=== PATIENT | female | born 1990 | race Caucasian/White ===

== ENCOUNTER 2017-03-07 21:35 | Emergency (ER) | payer SELFPAY ==
[~2017-03-07] VITALS: Ht 170.2 cm; Wt 81.0 kg
[~2017-03-07 21:35] MED LIST: CIPR500T4 PO; PHEN-537 PO
[2017-03-07 21:43] VITALS: Ht 170.2 cm; Wt 81.0 kg
[2017-03-07] MEDS ORDERED: IBUP-1542 PO (23:14)
[2017-03-07] MEDS ORDERED: CYCL-319 PO (23:14)
--- NOTE | 2017-03-07 23:22 | ERD ---
ER Documentation Chief Complaint Date/Time DATE: 03/07/17 TIME: 23:18 Chief Complaint Back pain after lifting something heavy HPI This is a 27-year-old female presenting to emergency department for back pain after lifting heavy object at work 2 days ago. Patient states she developed mid right-sided back pain after lifting heavy box at work 2 nights ago. Patient states pain has gotten worse. No chest pain or shortness of breath. No difficulty breathing. No heart palpitations or chest tightness or pressure. Patient rating pain 7/10. Denies radiating pain. Patient states she took ibuprofen at home without relief of symptoms. No dysuria, hematuria, urinary frequency or urinary urgency. ROS All systems reviewed and are negative except as per history of present illness. Medications Home Meds Active Scripts Cyclobenzaprine Hcl* (Cyclobenzaprine Hcl*) 10 Mg Tablet, 10 MG PO TID, #15 TAB Prov:ANTONIO LANGE NP 03/07/17 Ibuprofen* (Motrin*) 600 Mg Tab, 600 MG PO Q6, #20 TAB Prov:ANTONIO LANGE NP 03/07/17 Phenazopyridine Hcl* (Pyridium*) 100 Mg Tab, 100 MG PO TID Y for PAIN, #8 TAB Prov:AMAURI GUTHRIE I. LNA 08/24/15 Ciprofloxacin Hcl* (Ciprofloxacin Hcl*) 500 Mg Tablet, 250 MG PO BID for 10 Days , TAB Prov:AMAURI GUTHRIE I. LNA 08/24/15 Allergies Allergies: Coded Allergies: No Known Allergies (Verified Allergy, Unknown, 08/24/15) PMhx/Soc Medical and Surgical Hx: pt denies Medical Hx, pt denies Surgical Hx Hx Alcohol Use: Yes (rarely) Hx Substance Use: No Hx Tobacco Use: No Smoking Status: Never smoker Physical Exam Vitals Vital Signs Date Time Temp Pulse Resp B/P Pulse Ox O2 Delivery O2 Flow Rate FiO2 03/07/17 21:43 98.4 94 18 125/72 98 Physical Exam Const: No acute distress, alert Head: Atraumatic Eyes: Normal Conjunctiva ENT: Normal External Ears, Nose and Mouth. Neck: Full range of motion..~ No meningismus. Resp: Clear to auscultation bilaterally. No wheezing, rhonchi or crackles. No stridor or labored breathing. Patient is talking in complete sentences. Cardio: Regular rate and rhythm, no murmurs Abd: Soft, non tender, non distended. Normal bowel sounds Skin: No petechiae or rashes Back: No midline or flank tenderness. No CVA tenderness. Negative straight leg raise bilaterally Ext: No cyanosis, or edema Neur: Awake and alert Psych: Normal Mood and Affect Procedures/MDM MDM: 27-year-old female presents emergency department for right-sided mid back pain after lifting heavy object at work 2 days ago. Patient states pain has gotten worse since last night. Patient states pain is worse when lying down. Patient took ibuprofen at home without relief of symptoms. Patient requesting something stronger for pain and a note for work. No indication for imaging at this time due to no midline tenderness. No urinary complaints. Vital signs are stable. No signs or symptoms of respiratory distress. Low suspicion for cauda equina syndrome, acute fracture, acute dislocation, epidural abscess, malignancy and AAA rupture. Differential Diagnosis includes but is not limited to back strain, vertebral fracture, herniated disc, spinal stenosis and nephrolithiasis. Patient is appropriate for outpatient management will be given prescription for ibuprofen 600 mg and Flexeril 10 mg. Instructed patient to follow-up with primary care provider in the next 2-3 days for reassessment. Resources provided. Return to ED for any high fever, chest pain, difficulty breathing, shortness breath, wheezing, vomiting, diarrhea, abdominal pain or any new or worsening symptoms. Patient verbalizes understanding. All questions answered at discharge. Departure Diagnosis: Primary Impression: Back pain Back pain location: thoracic back pain Chronicity: acute Back pain laterality: right Qualified Code: M54.6 - Acute right-sided thoracic back pain Condition: Stable Patient Instructions: Back Sprain/Strain Referrals: [facility] YOU HAVE RECEIVED A MEDICAL SCREENING EXAM AND THE RESULTS INDICATE THAT YOU DO NOT HAVE A CONDITION THAT REQUIRES URGENT TREATMENT IN THE EMERGENCY DEPARTMENT. FURTHER EVALUATION AND TREATMENT OF YOUR CONDITION CAN WAIT UNTIL YOU ARE SEEN IN YOUR DOCTORS OFFICE WITHIN THE NEXT 1-2 DAYS. IT IS YOUR RESPONSIBILITY TO MAKE AN APPOINTMENT FOR FOLOW-UP CARE. IF YOU HAVE A PRIMARY DOCTOR --you should call your primary doctor and schedule an appointment IF YOU DO NOT HAVE A PRIMARY DOCTOR YOU CAN CALL OUR PHYSICIAN REFERRAL HOTLINE AT IF YOU CAN NOT AFFORD TO SEE A PHYSICIAN YOU CAN CHOSE FROM THE FOLLOWING [facility] [address] [place] [facility] [address] [facility] [address] [facility] [address] [facility] [address] [facility]. [facility] [address] [facility]. [facility] YOU HAVE RECEIVED A MEDICAL SCREENING EXAM AND THE RESULTS INDICATE THAT YOU DO NOT HAVE A CONDITION THAT REQUIRES URGENT TREATMENT IN THE EMERGENCY DEPARTMENT. FURTHER EVALUATION AND TREATMENT OF YOUR CONDITION CAN WAIT UNTIL YOU ARE SEEN IN YOUR DOCTORS OFFICE WITHIN THE NEXT 1-2 DAYS. IT IS YOUR RESPONSIBILITY TO MAKE AN APPOINTMENT FOR FOLOW-UP CARE. IF YOU HAVE A PRIMARY DOCTOR --you should call your primary doctor and schedule and appointment IF YOU DO NOT HAVE A PRIMARY DOCTOR YOU CAN CALL OUR PHYSICIAN REFERRAL HOTLINE AT . IF YOU CAN NOT AFFORD TO SEE A PHYSICIAN YOU CAN CHOSE FROM THE FOLLOWING [facility] INSTITUTIONS: [facility] [address] [place] [address] [facility] [address] [place] [address] [facility] [address] [place] [address] Additional Instructions: Call your primary care doctor TOMORROW for an appointment during the next 2-3 days.See the doctor sooner or return here if your condition worsens before your appointment time. Return to ED for any high fever, chest pain, difficulty breathing, shortness breath, wheezing, vomiting, diarrhea, abdominal pain or any new or worsening symptoms. ANTONIO LANEG NP Mar 07, 2017 23:21
== END 2017-03-07 23:35 | disposition home or self-care (01) ==
LOC: FTE 21:35
DX: M54.6 Pain in thoracic spine (principal)
CPT/HCPCS: 99283

== ENCOUNTER 2017-09-04 18:27 | Observation (INO) | payer OTHER ==
[~2017-09-04] VITALS: Ht 167.6 cm; Wt 79.4 kg
[~2017-09-04 18:27] MED LIST changes: +CYCL-319 PO; +IBUP-1542 PO
[2017-09-04] MEDS ORDERED: ONDANSETRON 4 MG INJ IV STA (19:33)
[2017-09-04] MEDS ORDERED: morphine 4 MG/ML VIAL IV STA (19:33)
[2017-09-04 20:50] LABS: ADD UMIC NO; UR ASCORBIC ACID NEGATIVE (NEGATIVE); UR BILIRUBIN (Dip) NEGATIVE (NEGATIVE); UR BLOOD (Dip) NEGATIVE (NEGATIVE); UR CLARITY CLEAR (CLEAR); UR COLOR YELLOW (YELLOW); UR GLUCOSE (Dip) NEGATIVE (NEGATIVE); UR KETONES (Dip) NEGATIVE (NEGATIVE); UR LEUKOCYTE ESTERASE (Dip) NEGATIVE Leu/ul (NEGATIVE); UR NITRITE (Dip) NEGATIVE (NEGATIVE); UR SPECIFIC GRAVITY (Dip) 1.015 (1.003-1.030); UR TOTAL PROTEIN (Dip) NEGATIVE (NEGATIVE); UR UROBILINOGEN (Dip) NEGATIVE (NEGATIVE)
[2017-09-04 20:56] LABS: BASOPHIL # 0.1 10^3/ul (0.0-0.1); BASOPHILS % 0.5 % (0.0-2.0); EOSINOPHILS # 0.1 10^3/ul (0.0-0.5); EOSINOPHILS % 0.5 % (0.0-7.0); HEMATOCRIT 36.5 % (37.0-47.0); HEMOGLOBIN 12.7 g/dl (12.0-16.0); LYMPHOCYTES # 2.2 10^3/ul (0.8-2.9); LYMPHOCYTES % 17.3 % (15.0-51.0); MEAN CORPUSCULAR HEMOGLOBIN 32.9 pg (29.0-33.0); MEAN CORPUSCULAR HGB CONC 34.8 g/dl (32.0-37.0); MEAN CORPUSCULAR VOLUME 94.6 fl (82.0-101.0); MEAN PLATELET VOLUME 10.6 fl (7.4-10.4); MONOCYTE # 0.7 10^3/ul (0.3-0.9); MONOCYTES % 5.2 % (0.0-11.0); NEUTROPHIL # 9.7 10^3/ul (1.6-7.5); NEUTROPHILS % 76.1 % (39.0-77.0); PLATELET COUNT 330 10^3/UL (140-415); RED BLOOD COUNT 3.86 10^6/ul (4.20-5.40); WHITE BLOOD COUNT 12.7 10^3/ul (4.8-10.8)
[2017-09-04 21:14] LABS: ALBUMIN/GLOBULIN RATIO 1.33; BILIRUBIN,INDIRECT 0.2 mg/dl (0-1.1); BILIRUBIN,TOTAL 0.2 mg/dl (0.2-1.3); CALCIUM 9.2 mg/dl (8.4-10.2); CREATININE 0.65 mg/dl (0.44-1.00); POTASSIUM 3.7 mmol/L (3.5-5.1)
--- NOTE | 2017-09-04 21:24 | RADRPT ---
PROCEDURE: CT abdomen and pelvis without contrast. CLINICAL INDICATION: Abdominal Pain TECHNIQUE: CT scan of the abdomen and pelvis without contrast was performed. The patient was scan [place] without intravenous contrast. 3-D coronal reformatted images were obtained from the axial [facility] e images. The calculated radiation dose measures 665 mGy centimeters. The CTDI measures 12 mGy One or more of the following dose reduction techniques were used: Automated exposure control. Adjustment of the mA and/or kV according to patient size. Use of iterative reconstruction technique. DICOM images are available COMPARISON: None available FINDINGS: CT abdomen: There is mild atelectasis in the right middle lobe.. The liver is normal in size and density, without intrahepatic biliary dilatation. The spleen and p ancreas are unremarkable noncontrast appearance. The gallbladder appears within normal limits. The adrenal glands are symmetric and normal. The kidneys appear normal in size and contour. No renal calculus or hydronephrosis is visualized. There is no ascites or retroperitoneal lymphadenopathy. Visualized bowel loops appear within normal limits. The appendix is thickened, up to [address], with adjacent fat stranding, consistent with appendicitis. There may be mild thickening of the base of the cecum.. CT pelvis: The urinary bladder appears normal. The pelvic organs are within normal limits. There is no abnorm al pelvic mass or adenopathy. There is no pelvic free fluid. Visualized osseous structures appear unremarkable. IMPRESSION: 1. Thickened appendix with adjacent fat stranding, consistent with appendicitis. 2. Otherwise unremarkable noncontrast examination. No renal calculi or hydronephrosis. . RPTAT: HBST .Jaime Llamas MD, MD Date Time Electronically viewed and signed by .Jaime Llamas MD, MD on 09/04/2017 21:24 .T/
--- NOTE | 2017-09-04 21:57 | SIPON ---
Date/Time of Note Date/Time of Note DATE: 09/04/17 TIME: 21:56 Operative Report Preoperative Diagnosis Acute appendicitis Postoperative Diagnosis Same Operation/Procedure Performed Laparoscopic appendectomy Surgeon see signature line real estate administrative assistant None Anesthesia: general Estimated blood loss: none Transfusion Required none Specimen Appendix Grafts/Implants none Complications none ETIENNE MOY MD Sep 04, 2017 21:57
--- NOTE | 2017-09-04 21:58 | OPR ---
Date/Time of Note Date/Time of Note DATE: 09/04/17 TIME: 21:57 Operative Report Procedure Date: Sep 04, 2017 Preoperative Diagnosis Acute appendicitis Postoperative Diagnosis Same Operation/Procedure Performed Laparoscopic appendectomy Surgeon see signature line Network Designer None Anesthesia Type: general Anesthesiologist: Jewel Salazar M.D. Estimated Blood Loss: minimal Transfusion none Specimen Appendix Grafts/Implants none Tubes/Drains None Complications none Pt Condition Post Procedure: stable Disposition: PACU Indications Indications The patient is a 27-year-old female with a acute onset of generalized abdominal pain, localizing to the right lower quadrant. She presented to the ER and was diagnosed with acute appendicitis. I discussed laparoscopic, possible open appendectomy with the patient. All benefits, risks, alternatives discussed in detail. All questions answered. The patient elected to proceed. Procedure Description The patient was brought to operative room placed supine on the table. After preop antibiotics and SCDs were applied, the patient was intubated and the abdomen was cleaned, prepped, and draped in usual sterile fashion. All incisions were infiltrated with 1 spotting with epi house Marcaine prior to incision. A 5 mm incision was made in the umbilicus. Using a 5 minute laparoscopic containing trocar, the abdomen was entered direct vision insufflated 50 mm of CO2. Under direct vision, the following trochars were placed: A 5 mm right lower quadrant and a left lower quadrant 12 mm. There was some serosanguineous fluid in the pelvis. The appendix was visualized and was consistent with acute appendicitis.. I made a rent in the mesentery to base the appendix divided the cecum at the base of the appendix with a 35 mm Endo linear cutter white load. The appendiceal mesentery was then divided with a 35 mm Endo linear cutter white load. The appendix was then removed the 12 mm trocar site. I visualized my staple lines. T I then turned my attention to the pelvis. I irrigated out the right lower quadrant and pelvis until effluent was clear. I desufflated the abdomen moved all trochars. The fascia of the 12 mm trocar site was closed with 0 Vicryl. Skin incisions were all closed with 4 Monocryl, Mastisol, and Steri-Strips. The patient tolerated the procedure well, was extubated in the OR, transferred to the recovery room stable condition. ETIENNE MOY MD Sep 04, 2017 21:58
[2017-09-04] MEDS ORDERED: ONDANSETRON 4 MG INJ IV PRN ×2 (22:00→22:30)
[2017-09-04] MEDS ORDERED: NACL 0.9% 3 ML SYG IV SCH (22:00)
[2017-09-04] MEDS ORDERED: morphine 2 MG INJ IV PRN ×2 (22:00→23:00)
[2017-09-04] MEDS ORDERED: BISACODYL (EC) 5 MG TAB PO PRN (22:00)
[2017-09-04] MEDS ORDERED: DOCUSATE SODIUM 100 MG CAP PO PRN (22:00)
[2017-09-04] MEDS ORDERED: ACETAMINOPHEN 325 MG TAB PO PRN ×2 (22:00→23:00)
[2017-09-04] MEDS ORDERED: PROPOFOL 20 ML ONE (22:19)
[2017-09-04] MEDS ORDERED: CEFAZOLIN 1 GM INJ ONE (22:19)
[2017-09-04] MEDS ORDERED: GLYCOPYRROLATE 0.4 MG INJ ONE (22:19)
[2017-09-04] MEDS ORDERED: MIDAZOLAM 1 MG/ML 2 ML INJ ONE (22:19)
[2017-09-04] MEDS ORDERED: FENTAnyl 50 MCG/ML VIAL ONE (22:19)
[2017-09-04] MEDS ORDERED: NEOSTIGMINE 3 MG/3 ML SYRINGE ONE (22:19)
[2017-09-04] MEDS ORDERED: ROCURONIUM 50 MG INJ ONE (22:19)
[2017-09-04] MEDS ORDERED: ONDANSETRON 4 MG INJ ONE (22:20)
[2017-09-04] MEDS ORDERED: DEXAMETHASONE 4 MG/ML 1 ML INJ ONE (22:20)
[2017-09-04] MEDS ORDERED: DIPHENHYDRAMINE 50 MG INJ IV PRN (22:30)
[2017-09-04] MEDS ORDERED: LABETALOL HCL 20MG INJ IV PRN (22:30)
[2017-09-04] MEDS ORDERED: HYDROmorphONE (0.2 MG/ML) 10ML SYG IV PRN ×2 (22:30)
[2017-09-04] MEDS ORDERED: PIPER-TAZO 3.375 GM IV (PMX) 50 ML IV ONE (22:30)
[2017-09-04] MEDS ORDERED: MIDAZOLAM 1 MG/ML 2 ML INJ IV PRN (22:30)
[2017-09-04] MEDS ORDERED: OXYCODONE/ACETAMINOPHEN (5/325) TAB PO PRN ×2 (22:30)
[2017-09-04] MEDS ORDERED: IPRATROPIUM (NEB) 0.5 MG/2.5 ML AMP HHN PRN (22:30)
[2017-09-04] MEDS ORDERED: TRIMETHOBENZAMIDE 100 MG/ML VIAL IM PRN (22:30)
[2017-09-04] MEDS ORDERED: FENTAnyl 50 MCG/ML VIAL IV PRN ×2 (22:30)
[2017-09-04] MEDS ORDERED: ALBUTEROL 0.083% (NEB) 2.5 MG/3 ML AMP HHN PRN (22:30)
[2017-09-04] MEDS ORDERED: EPHEDrine SULFATE 50 MG/5 ML SYG IV PRN (22:30)
[2017-09-04] MEDS ORDERED: MEPERIDINE 25 MG INJ IV PRN (22:30)
[2017-09-04] MEDS ORDERED: hydrALAzine 20 MG INJ IV PRN (22:30)
[2017-09-04] MEDS ORDERED: EPINEPHrine 100 MCG/10 ML SYG IV ONE (22:31)
--- NOTE | 2017-09-04 22:42 | CONS ---
Date/Time of Note Date/Time of Note DATE: 09/04/17 TIME: 22:40 Assessment/Plan Assessment/Plan Additional Assessment/Plan Acute appendicitis. I discussed scopic, possible open, appendectomy. All benefits, risks, alternatives discussed in detail with patient. All questions answered. The patient elected to proceed. Consultation Date/Type/Reason Admit Date/Time Date of Consultation: Sep 04, 2017 Hx of Present Illness The patient is a 27-year-old female had some abdominal pain approximately 2 days ago. Her pain improved but then today localized down to the right lower quadrant. She had some nausea but no emesis. She denies fevers, chills or night sweats. She presented to the ER and workup was consistent with acute appendicitis. Past Medical History Medical History: no pertinent history Past Surgical History Past Surgical Hx: no surgical history Family History Significant Family History: no pertinent family hx Social History Alcohol Use: occasionally Smoking Status: Never smoker Exam/Review of Systems Vital Signs Vitals Vital Signs Date Time Temp Pulse Resp B/P Pulse Ox O2 Delivery O2 Flow Rate FiO2 09/04/17 18:31 98.2 80 20 120/67 100 Exam Constitutional: alert, oriented, well developed Psych: nl mood/affect, no complaints Head: normocephalic Eyes: EOMI, nl conjunctiva ENMT: nl external ears & nose Neck: supple Respiratory: clear to auscultation, normal air movement Cardiovascular: nl pulses, regular rate and rhythm Gastrointestinal: soft, tender (2 right lower quadrant) Extremities: normal pulses Neurological: ACCOUNTS RECEIVABLE EXECUTIVE II-XII intact Skin: nl turgor Lymph: nl lymph nodes Results Result Diagram: 09/04/17202909/04/172029 Results 24 hrs Laboratory Tests Test 09/04/17 20:30 White Blood Count 12.7 H Red Blood Count 3.86 L Hemoglobin 12.7 Hematocrit 36.5 L Mean Corpuscular Volume 94.6 Mean Corpuscular Hemoglobin 32.9 Mean Corpuscular Hemoglobin Concent 34.8 Red Cell Distribution Width 13.0 Platelet Count 330 Mean Platelet Volume 10.6 H Neutrophils % 76.1 Lymphocytes % 17.3 Monocytes % 5.2 Eosinophils % 0.5 Basophils % 0.5 Nucleated Red Blood Cells % 0.0 Neutrophils # 9.7 H Lymphocytes # 2.2 Monocytes # 0.7 Eosinophils # 0.1 Basophils # 0.1 Nucleated Red Blood Cells # 0.0 Urine Color YELLOW Urine Clarity CLEAR Urine pH 6.0 Urine Specific [place] 1.015 Urine Ketones NEGATIVE Urine Nitrite NEGATIVE Urine Bilirubin NEGATIVE Urine Urobilinogen NEGATIVE Urine Leukocyte Esterase NEGATIVE Urine Hemoglobin NEGATIVE Urine Glucose NEGATIVE Urine Total Protein NEGATIVE Sodium Level 139 Potassium Level 3.7 Chloride Level 106 Carbon Dioxide Level 23 Anion Gap 14 Blood Urea Nitrogen 9 Creatinine 0.65 Glucose Level 87 Calcium Level 9.2 Total Bilirubin 0.2 Direct Bilirubin 0.00 Indirect Bilirubin 0.2 Aspartate Amino Transf (AST/SGOT) 20 Alanine Aminotransferase (ALT/SGPT) 25 Alkaline Phosphatase 83 Total Protein 7.0 Albumin 4.0 Globulin 3.00 Albumin/Globulin Ratio 1.33 Lipase 46 Imaging Free Text/Dictation Patient: CECILE HERMOSILLO : 1990 Age: 27 Sex: F MR #: [id number] DOS: 09/04/171932 Ordering MD: CASSIDY CROOKS PA-C Location: [facility] Room/Bed: PROCEDURE: CT abdomen and pelvis without contrast. CLINICAL INDICATION: Abdominal Pain TECHNIQUE: CT scan of the abdomen and pelvis without contrast was performed. The patient was scanned without intravenous contrast. 3-D coronal reformatted images were obtained from the axial source images. The calculated radiation dose measures 665 mGy centimeters. The CTDI measures 12 mGy One or more of the following dose reduction techniques were used: Automated exposure control. Adjustment of the mA and/or kV according to patient size. Use of iterative reconstruction technique. DICOM images are available COMPARISON: None available FINDINGS: CT abdomen: There is mild atelectasis in the right middle lobe.. The liver is normal in size and density, without intrahepatic biliary dilatation. The spleen and pancreas are unremarkable noncontrast appearance. The gallbladder appears within normal limits. The adrenal glands are symmetric and normal. The kidneys appear normal in size and contour. No renal calculus or hydronephrosis is visualized. There is no ascites or retroperitoneal lymphadenopathy. Visualized bowel loops appear within normal limits. The appendix is thickened, up to 14 mm in diameter, with adjacent fat stranding, consistent with appendicitis. There may be mild thickening of the base of the cecum.. CT pelvis: The urinary bladder appears normal. The pelvic organs are within normal limits. There is no abnormal pelvic mass or adenopathy. There is no pelvic free fluid. Visualized osseous structures appear unremarkable. IMPRESSION: 1. Thickened appendix with adjacent fat stranding, consistent with appendicitis. 2. Otherwise unremarkable noncontrast examination. No renal calculi or hydronephrosis. . RPTAT: HBST .Jaime Llamas MD, MD Date Time Medications Medications Current Medications Sodium Chloride (NS) 1,000 ml @ 80 mls/hr [id number] IV ; Start 09/05/17 at 01:00 Ondansetron HCl (Zofran Inj) 4 mg Q6H PRN IV NAUSEA AND/OR VOMITING; Start at 22:00 Acetaminophen (Tylenol Tab) 650 mg Q6H PRN PO PAIN LEVEL 1-3 OR FEVER; Start 09/04/17 at 22:00 Morphine Sulfate (morphine) 2 mg Q4H PRN IV SEVERE PAIN LEVEL 7-10; Start at 22:00 Docusate Sodium (Colace) 100 mg Q12H PRN PO CONSTIPATION; Start 09/04/17 at 22 :00 Bisacodyl 5 mg 5 mg DAILY PRN PO CONSTIPATION; Start 09/04/17 at 22:00 Piperacillin Sod/ Tazobactam Sod (Zosyn 3.375gm/ 50 ml (Pmx)) 50 ml @ 100 mls/ hr ONCE ONCE IV Last administered on 09/04/17t 22:18; Admin Dose 100 MLS/HR; Start 09/04/17 at 22:30; Stop 09/04/17 at 22:59 ETIENNE MOY MD Sep 04, 2017 22:42
[2017-09-04] MEDS ORDERED: LIDOCAINE 1%/EPI 30 ML INJ ONE (23:25)
[2017-09-04] MEDS ORDERED: BUPIVACAINE 0.25%/EPI (SDV) 30 ML INJ ONE (23:25)
[2017-09-04] MEDS ORDERED: SUGAMMADEX SODIUM 200 MG/2 ML VIAL IV ONE (23:42)
[2017-09-04 23:49] VITALS: BP 123/65; PULSE 88; RESP 19
[2017-09-04 23:55] VITALS: BP 111/65; PULSE 79; RESP 22
[2017-09-04] MEDS: HYDROmorphONE (0.2 MG/ML) 10ML SYG IV PRN (23:56)
[2017-09-04] MEDS: FENTAnyl 50 MCG/ML VIAL IV PRN (23:57)
[2017-09-05] VITALS (14 sets, daily range): BP systolic 100–128; BP diastolic 56–78; PULSE 63–92; RESP 14–22; Ht 167.6 cm; Wt 79.4 kg
[2017-09-05] MEDS: HYDROmorphONE (0.2 MG/ML) 10ML SYG IV PRN ×2 (00:01→00:08)
[2017-09-05] MEDS: FENTAnyl 50 MCG/ML VIAL IV PRN (00:02)
--- NOTE | 2017-09-05 00:44 | ERD ---
ER Documentation Chief Complaint Chief Complaint mid abd pain x 3 days HPI This is a 27-year-old female who presents the emergency department today eating of 2 days of abdominal pain that got worse today. States that she has some nausea but no vomiting. Denies any diarrhea. States that she has been taking ibuprofen for pain. Denies any dysuria fevers or chills. ROS All systems reviewed and are negative except as per history of present illness. Medications Home Meds Active Scripts Cyclobenzaprine Hcl* (Cyclobenzaprine Hcl*) 10 Mg Tablet, 10 MG PO TID, #15 TAB Prov:ANTONIO LANGE NP 03/07/17 Ibuprofen* (Motrin*) 600 Mg Tab, 600 MG PO Q6, #20 TAB Prov:ANTONIO LANGE NP 03/07/17 Phenazopyridine Hcl* (Pyridium*) 100 Mg Tab, 100 MG PO TID Y for PAIN, #8 TAB Prov:AMAURI G[facility]RIE [facility] 08/24/15 Ciprofloxacin Hcl* (Ciprofloxacin Hcl*) 500 Mg Tablet, 250 MG PO BID for 10 Days , TAB Prov:AMAURI G[facility]RIE [facility] 08/24/15 Allergies Allergies: Coded Allergies: No Known Allergies (Verified Allergy, Unknown, 08/24/15) PMhx/Soc Medical and Surgical Hx: pt denies Medical Hx, pt denies Surgical Hx Hx Alcohol Use: Yes (rarely) Hx Substance Use: No Hx Tobacco Use: No Smoking Status: Never smoker Physical Exam Vitals Vital Signs Date Time Temp Pulse Resp B/P Pulse Ox O2 Delivery O2 Flow Rate FiO2 09/05/17 00:13 79 19 123/65 100 Nasal Cannula 2.0 09/05/17 00:10 69 20 111/60 99 Nasal Cannula 2.0 09/05/17 00:05 77 22 116/65 99 Nasal Cannula 2.0 09/05/17 00:01 88 22 120/78 99 Nasal Cannula 2.0 09/04/17 23:55 79 22 111/65 99 Nasal Cannula 2.0 09/04/17 23:49 97.9 88 19 123/65 99 Nasal Cannula 2.0 09/04/17 23:33 97.5 09/04/17 18:31 98.2 80 20 120/67 100 Physical Exam Const: NAD Head: Atraumatic Eyes: Normal Conjunctiva ENT: Normal External Ears, Nose and Mouth. Neck: Full range of motion..~ No meningismus. Resp: Clear to auscultation bilaterally Cardio: Regular rate and rhythm, no murmurs Abd: Soft, or quadrant tenderness at McBurney's non distended. Normal bowel sounds no right upper quadrant pain. No left lower quadrant pain. No rebound tenderness Skin: No petechiae or rashes Back: No midline or flank tenderness Ext: No cyanosis, or edema Neur: Awake and alert Psych: Normal Mood and Affect Result Diagram: 09/04/17202909/04/17 2030 Results 24 hrs Laboratory Tests Test 09/04/17 20:30 White Blood Count 12.710^3/ul Red Blood Count 3.8610^6/ul Hemoglobin 12.7g/dl Hematocrit 36.5% Mean Corpuscular Volume 94.6fl Mean Corpuscular Hemoglobin 32.9pg Mean Corpuscular Hemoglobin Concent 34.8g/dl Red Cell Distribution Width 13.0% Platelet Count 96163^3/UL Mean Platelet Volume 10.6fl Neutrophils % 76.1% Lymphocytes % 17.3% Monocytes % 5.2% Eosinophils % 0.5% Basophils % 0.5% Nucleated Red Blood Cells % 0.0/100WBC Neutrophils # 9.710^3/ul Lymphocytes # 2.210^3/ul Monocytes # 0.710^3/ul Eosinophils # 0.110^3/ul Basophils # 0.110^3/ul Nucleated Red Blood Cells # 0.010^3/ul Urine Color YELLOW Urine Clarity CLEAR Urine pH 6.0 Urine Specific [place] 1.015 Urine Ketones NEGATIVEmg/dL Urine Nitrite NEGATIVEmg/dL Urine Bilirubin NEGATIVEmg/dL Urine Urobilinogen NEGATIVEmg/dL Urine Leukocyte Esterase NEGATIVELeu/ul Urine Hemoglobin NEGATIVEmg/dL Urine Glucose NEGATIVEmg/dL Urine Total Protein NEGATIVEmg/dl Sodium Level 139mmol/L Potassium Level 3.7mmol/L Chloride Level 106mmol/L Carbon Dioxide Level 23mmol/L Anion Gap 14 Blood Urea Nitrogen 9mg/dl Creatinine 0.65mg/dl Glucose Level 87mg/dl Calcium Level 9.2mg/dl Total Bilirubin 0.2mg/dl Direct Bilirubin 0.00mg/dl Indirect Bilirubin 0.2mg/dl Aspartate Amino Transf (AST/SGOT) 20IU/L Alanine Aminotransferase (ALT/SGPT) 25IU/L Alkaline Phosphatase 83IU/L Total Protein 7.0g/dl Albumin 4.0g/dl Globulin 3.00g/dl Albumin/Globulin Ratio 1.33 Lipase 46U/L Current Medications Medications (Trade) Dose Ordered Sig/Myranda Route PRN Reason Start Time Stop Time Status Last Admin Dose Admin Morphine Sulfate (morphine) 4 mg ONCE STAT IV 09/04/17 19:33 09/04/17 19:35 DC 09/04/17 19:57 Ondansetron HCl 4 mg 4 mg ONCE STAT IV 09/04/17 19:33 09/04/17 19:35 DC 09/04/17 19:57 Sodium Chloride (NS) 1,000 ml @ 80 mls/hr [id number] IV 09/05/17 01:00 IV Flush (NS 3 ml) 3 ml PER PROTOCOL IV 09/04/17 22:00 Ondansetron HCl (Zofran Inj) 4 mg Q6H PRN IV NAUSEA AND/OR VOMITING 09/04/17 22:00 Acetaminophen (Tylenol Tab) 650 mg Q6H PRN PO PAIN LEVEL 1-3 OR FEVER 09/04/17 22:00 Morphine Sulfate (morphine) 2 mg Q4H PRN IV SEVERE PAIN LEVEL 7-10 09/04/17 22:00 Docusate Sodium (Colace) 100 mg Q12H PRN PO CONSTIPATION 09/04/17 22:00 Bisacodyl 5 mg 5 mg DAILY PRN PO CONSTIPATION 09/04/17 22:00 Piperacillin Sod/ Tazobactam Sod (Zosyn 3.375gm/ 50 ml (Pmx)) 50 ml @ 100 mls/hr ONCE ONCE IV 09/04/17 22:30 09/04/17 22:59 DC 09/04/17 22:18 Hydromorphone HCl (Dilaudid (Rec)) 0.2 mg PACU ORDER PRN IV MILD PAIN LEVEL 1-3 09/04/17 22:30 09/05/17 02:30 09/05/17 00:15 Hydromorphone HCl (Dilaudid (Rec)) 0.4 mg PACU ORDER PRN IV MODERATE PAIN LEVEL 4-6 09/04/17 22:30 09/05/17 02:30 Hydromorphone HCl (Dilaudid (Rec)) 0.6 mg PACU ORDER PRN IV SEVERE PAIN LEVEL 7-10 09/04/17 22:30 09/05/17 02:30 09/05/17 00:08 Fentanyl (Sublimaze) 25 mcg PACU ORDER PRN IV MILD PAIN LEVEL 1-3 09/04/17 22:30 09/05/17 02:30 Fentanyl (Sublimaze) 50 mcg PACU ODER PRN IV MODERATE PAIN LEVEL 4-6 09/04/17 22:30 09/05/17 02:30 09/05/17 00:02 Fentanyl (Sublimaze) 75 mcg PACU ORDER PRN IV SEVERE PAIN LEVEL 7-10 09/04/17 22:30 09/05/17 02:30 Oxycodone/ Acetaminophen (Percocet (5/ 325)) 1 tab PACU ORDER PRN PO PAIN LEVEL 1-5 09/04/17 22:30 09/05/17 02:30 Oxycodone/ Acetaminophen (Percocet (5/ 325)) 2 tab PACU ORDER PRN PO PAIN LEVEL 6-10 09/04/17 22:30 09/05/17 02:30 Ondansetron HCl (Zofran Inj) 4 mg PACU ORDER PRN IV NAUSEA AND/OR VOMITING 09/04/17 22:30 09/05/17 02:30 Trimethobenzamide HCl (Tigan) 200 mg PACU ORDER PRN IM NAUSEA AND/OR VOMITING 09/04/17 22:30 09/05/17 02:30 Labetalol HCl (Labetalol) 5 mg PACU ORDER PRN IV HIGH BLOOD PRESSURE 09/04/17 22:30 09/05/17 02:30 Hydralazine HCl (Apresoline) 5 mg PACU ORDER PRN IV HIGH BLOOD PRESSURE 09/04/17 22:30 09/05/17 02:30 Ephedrine Sulfate 5 mg PACU ORDER PRN IV MAP LESS THAN 60 09/04/17 22:30 09/05/17 02:30 Albuterol (Proventil 0.083% (Neb)) 2.5 mg PACU ORDER PRN HHN WHEEZING 09/04/17 22:30 09/05/17 02:30 Ipratropium [place] (Atrovent 0.02% (Neb)) 0.5 mg PACU ORDER PRN HHN WHEEZING 09/04/17 22:30 09/05/17 02:30 Meperidine HCl (Demerol) 25 mg PACU ORDER PRN IV POST-OP RIGORS 09/04/17 22:30 09/05/17 02:30 Diphenhydramine HCl (Benadryl) 25 mg PACU ORDER PRN IV PRURITUS 09/04/17 22:30 09/05/17 02:30 Midazolam HCl 0.5 mg 0.5 mg PACU ORDER PRN IV ANXIETY 09/04/17 22:30 09/05/17 02:30 Piperacillin Sod/ Tazobactam Sod (Zosyn 3.375gm/ 50 ml (Pmx)) 50 ml @ 100 mls/hr Q6 IVPB 09/05/17 06:00 Acetaminophen (Tylenol Tab) 650 mg Q6H PRN PO PAIN LEVEL 1-3 OR FEVER 09/04/17 23:00 Ibuprofen (Motrin) 600 mg Q6H PRN PO PAIN LEVEL 1-3 09/06/17 17:02 Ketorolac Tromethamine (Toradol) 15 mg Q6H IV 09/04/17 23:00 09/06/17 17:01 Morphine Sulfate (morphine) 2 mg Q2H PRN IV PAIN LEVEL 8-10 09/04/17 23:00 Oxycodone/ Acetaminophen 1 tab 1 tab Q6H PRN PO PAIN LEVEL 4-7 09/04/17 23:00 Potassium Chloride/Dextrose/ Sod Cl (D5-NS + KCl 20 Meq) 1,000 ml @ 100 mls/hr Q10H IV 09/04/17 22:43 UNV Enoxaparin Sodium (Lovenox) 40 mg DAILY@07 SC 09/05/17 07:00 Bupivacaine HCl/ Epinephrine Bitart (Marcaine 0.25%/ Epi (Sdv) 30 ml) 30 ml STK-MED ONCE .ROUTE 09/04/17 23:25 09/04/17 23:26 DC 09/04/17 23:36 Lidocaine/ Epinephrine (Xylocaine 1%/ Epi (Pf)) 30 ml STK-MED ONCE .ROUTE 09/04/17 23:25 09/04/17 23:26 DC 09/04/17 23:36 DIAGNOSTIC IMAGING REPORT Patient: CECILE HERMOSILLO : 1990 Age: 27 Sex: F MR #: [id number] DOS: 09/04/17 1933 Ordering MD: CASSIDY CROOKS PA-C Location: [facility] Room/Bed: PROCEDURE: CT abdomen and pelvis without contrast. CLINICAL INDICATION: Abdominal Pain TECHNIQUE: CT scan of the abdomen and pelvis without contrast was performed. The patient was scanned without intravenous contrast. 3-D coronal reformatted images were obtained from the axial source images. The calculated radiation dose measures 665 mGy centimeters. The CTDI measures 12 mGy One or more of the following dose reduction techniques were used: Automated exposure control. Adjustment of the mA and/or kV according to patient size. Use of iterative reconstruction technique. DICOM images are available COMPARISON: None available FINDINGS: CT abdomen: There is mild atelectasis in the right middle lobe.. The liver is normal in size and density, without intrahepatic biliary dilatation. The spleen and pancreas are unremarkable noncontrast appearance. The gallbladder appears within normal limits. The adrenal glands are symmetric and normal. The kidneys appear normal in size and contour. No renal calculus or hydronephrosis is visualized. There is no ascites or retroperitoneal lymphadenopathy. Visualized bowel loops appear within normal limits. The appendix is thickened, up to 14 mm in diameter, with adjacent fat stranding, consistent with appendicitis. There may be mild thickening of the base of the cecum.. CT pelvis: The urinary bladder appears normal. The pelvic organs are within normal limits. There is no abnormal pelvic mass or adenopathy. There is no pelvic free fluid. Visualized osseous structures appear unremarkable. IMPRESSION: 1. Thickened appendix with adjacent fat stranding, consistent with appendicitis. 2. Otherwise unremarkable noncontrast examination. No renal calculi or hydronephrosis. . RPTAT: HBST .Jaime Llamas MD, MD Date Time Electronically viewed and signed by .Jaime Llamas MD, MD on 09/04/2017 21:24 .T/ CC: CASSIDY CROOKS PA-C Procedures/MDM This is a 27-year-old female who presents to the emergency department today complaining of abdominal pain for the past 2 days. On physical exam patient has specific tenderness in her right lower quadrant at McBurney's point. She is afebrile and otherwise well-appearing however given the location of her pain I did obtain laboratory workup as well as imaging. Laboratory workup shows an elevated white blood cell count of 12.7. She is not anemic. Platelets are within normal limits. Electrolytes are within normal limits. Glucose is normal limits. Liver enzymes are within normal limits. Lipase within normal limits. UA is negative for infection test is negative CT abdomen pelvis noncontrast a thickened appendix with adjacent fat stranding consistent with acute appendicitis. Otherwise unremarkable. I explained the results to the patient and her mother. Patient agreed to be admitted and to have her appendix removed. I placed a call to the general surgeon on-call doctor Gita, who was in-house already and notified him of the patient's acute appendicitis. He indicated the patient will be able to go to the OR within the next hour. Patient had been n.p.o. since 9 AM. She was given IV fluids and Zosyn here in the emergency department patient. Patient went to the OR in stable condition. Any further orders placed were placed by Dr. Pelayo, or the admitting physician. Departure Diagnosis: Primary Impression: Appendicitis Appendicitis type: acute appendicitis Acute appendicitis type: unspecified acute appendicitis type Qualified Code: K35.80 - Acute appendicitis, unspecified acute appendicitis type Condition: CASSIDY Hernandez PA-C Sep 05, 2017 00:44
[2017-09-05] MEDS ORDERED: SOD CHLORIDE 0.9% 1,000 ML IV SCH (01:00)
[2017-09-05] MEDS: KETOROLAC 15 MG INJ IV SCH ×5 (01:03→23:21)
[2017-09-05] MEDS: D5-NS + KCL 20 MEQ 1,000 ML IV SCH ×3 (01:17→23:22)
[2017-09-05] MEDS: OXYCODONE/ACETAMINOPHEN (5/325) TAB PO PRN ×2 (01:18→20:23)
--- NOTE | 2017-09-05 02:21 | HP ---
Date/Time of Note Date/Time of Note DATE: 09/05/17 TIME: 02:13 Assessment/Plan VTE Prophylaxis VTE Prophylaxis Intervention: SCD's Lines/Catheters IV [facility]ter [facility]from [facility]): [place] Assessment/Plan Chief Complaint/Hosp Course This is a 18 year female being admitted to the [facility] floor for: #1 acute appendicitis: Patient is status post arthroscopic appendectomy. At the current time will provide patient pain control as per surgery conditions. She has been started on clears by surgery will continue to monitor. She was started on Zosyn prior to surgery will continue this and DC as per surgery recommendations. Continue further monitoring flow surgery recommendations. #2 DVT GI prophylaxis: SCDs, no GI prophylaxis indicated Further treatment strategy will be implemented as per the clinical course Problems: HPI/ROS Admit Date/Time Admit Date/Time Hx of Present Illness Chief complaint: Abdominal pain 2 days The patient is a 27-year-old female had some abdominal pain approximately 2 days ago. Her pain initially started around epigastric area and it was a sharp pain that would come and go. Yesterday however the pain localized down to the right lower quadrant and remained constant. She had some nausea but no emesis. She denies fevers, chills or night sweats. CT of the abdomen pelvis showed evidence of acute appendicitis. She was taken to the operating room for laparoscopic appendectomy by Dr. Pelayo. She is still some mild pain status post surgery. She however does feel a lot better than when she felt before she states. Allergies: NKDA Medications: None ROS Const: As per HPI Eyes : No pain discharge or redness or change in visual acuity ENT: No pain, sore throat, congestion, congestion, dysphagia or discharge Respiratory: No shortness of breath, cough, sputum, wheezing, or pleuritic pain Cardiovascular: No chest pain, palpitation, PND, or edema GI : As per HPI Genitourinary: No dysuria, hematuria, flank pain , discharge or CVA tenderness Musculoskeletal: No joint pain, back pain, neck pain, restricted range of motion in neck or joints Skin: No rash, bruising or hives Neuro: No headache, dizziness, syncope, seizure, focal weakness Endocrine: No polyuria, polydipsia, temperature intolerance Psych: No hallucination, depression, anxiety or suicidal ideation Psychological: nl mood/affect, no complaints PMH/Family/Social Past Medical History Medical History: no pertinent history Past Surgical History Status post lap appendectomy Family History Significant Family History: no pertinent family hx Social History Alcohol Use: occasionally Smoking Status: Never smoker Drug Use: none Exam/Review of Systems Vital Signs Vitals Vital Signs Date Time Temp Pulse Resp B/P Pulse Ox O2 Delivery O2 Flow Rate FiO2 09/05/17 01:00 98.1 92 18 111/56 91 Room Air 09/05/17 00:45 2.0 Intake and Output 09/04/17 09/04/17 09/05/17 15:00 23:00 07:00 Intake Total 700 ml Output Total 10 ml Balance 690 ml Exam Exam General: Patient is status post laparoscopic appendectomy. She is currently in some mild postop pain. HEENT: Atraumatic, normocephalic. The pupils are equal, round and reactive. Extraocular motor are intact Neck: Supple with full range of motion. No rigidity or meningismus Chest: Nontender Lungs: Clear to auscultation bilaterally no crackles rales or wheezing Heart: Normal S1-S2, Regular rhythm and rate. No murmur, S3, or S4 Abdomen: Soft, mild tenderness palpation at the surgical sites, nondistended, hypoactive bowel sounds. Surgical scars with Steri-Strips clean dry and intact no drainage noted Extremities: Normal to inspection, no edema no cyanosis Neurologic: Normal mental status, speech normal, cranial nerves II through XII are intact, motor and sensory are intact, no focal weakness Additional Comments PROCEDURE: CT abdomen and pelvis without contrast. CLINICAL INDICATION: Abdominal Pain TECHNIQUE: CT scan of the abdomen and pelvis without contrast was performed. The patient was scanned without intravenous contrast. 3-D coronal reformatted images were obtained from the axial source images. The calculated radiation dose measures 665 mGy centimeters. The CTDI measures 12 mGy One or more of the following dose reduction techniques were used: Automated exposure control. Adjustment of the mA and/or kV according to patient size. Use of iterative reconstruction technique. DICOM images are available COMPARISON: None available FINDINGS: CT abdomen: There is mild atelectasis in the right middle lobe.. The liver is normal in size and density, without intrahepatic biliary dilatation. The spleen and pancreas are unremarkable noncontrast appearance. The gallbladder appears within normal limits. The adrenal glands are symmetric and normal. The kidneys appear normal in size and contour. No renal calculus or hydronephrosis is visualized. There is no ascites or retroperitoneal lymphadenopathy. Visualized bowel loops appear within normal limits. The appendix is thickened, up to 14 mm in diameter, with adjacent fat stranding, consistent with appendicitis. There may be mild thickening of the base of the cecum.. CT pelvis: The urinary bladder appears normal. The pelvic organs are within normal limits. There is no abnormal pelvic mass or adenopathy. There is no pelvic free fluid. Visualized osseous structures appear unremarkable. IMPRESSION: 1. Thickened appendix with adjacent fat stranding, consistent with appendicitis. 2. Otherwise unremarkable noncontrast examination. No renal calculi or hydronephrosis. . RPTAT: HBST .Jaime Llamas MD, MD Date Time Electronically viewed and signed by .Jaime Llamas MD, on 09/04/2017 21:24 .T/ CC: CASSIDY CROOKS PA-C Labs Result Diagram: 09/04/17202909/04/172029 Medications Medications Current Medications Ondansetron HCl (Zofran Inj) 4 mg Q6H PRN IV NAUSEA AND/OR VOMITING Last administered on 09/05/17t 01:19; Admin Dose 4 MG; Start 09/04/17 at 22:00 Acetaminophen (Tylenol Tab) 650 mg Q6H PRN PO PAIN LEVEL 1-3 OR FEVER; Start 09/04/17 at 22:00 Morphine Sulfate (morphine) 2 mg Q4H PRN IV SEVERE PAIN LEVEL 7-10; Start at 22:00 Docusate Sodium (Colace) 100 mg Q12H PRN PO CONSTIPATION; Start 09/04/17 at 22 :00 Bisacodyl 5 mg 5 mg DAILY PRN PO CONSTIPATION; Start 09/04/17 at 22:00 Piperacillin Sod/ Tazobactam Sod (Zosyn 3.375gm/ 50 ml (Pmx)) 50 ml @ 100 mls/ hr Q6 IVPB ; Start 09/05/17 at 06:00 Acetaminophen (Tylenol Tab) 650 mg Q6H PRN PO PAIN LEVEL 1-3 OR FEVER; Start 09/04/17 at 23:00 Ibuprofen (Motrin) 600 mg Q6H PRN PO PAIN LEVEL 1-3; Start 09/06/17 at 17:02 Ketorolac Tromethamine (Toradol) 15 mg Q6H IV ; Start 09/04/17 at 23:00; Stop 09/06/17 at 17:01 Morphine Sulfate (morphine) 2 mg Q2H PRN IV PAIN LEVEL 8-10; Start 09/04/17 at 23:00 Oxycodone/ Acetaminophen 1 tab 1 tab Q6H PRN PO PAIN LEVEL 4-7 Last administered on 09/05/17 01:18; Admin Dose 1 TAB; Start 09/04/17 at 23:00 Potassium Chloride/Dextrose/ Sod Cl (D5-NS + KCl 20 Meq) 1,000 ml @ 100 mls/hr Q10H IV Last administered on 09/05/17 01:17; Admin Dose 100 MLS/HR; Start at 00:45 Enoxaparin Sodium (Lovenox) 40 mg DAILY@07 SC ; Start 09/05/17 at 07:00 DENIZ KOVACS Sep 05, 2017 02:20
[2017-09-05] MEDS: PIPER-TAZO 3.375 GM IV (PMX) 50 ML IVPB SCH ×4 (06:14→23:21)
[2017-09-05] MEDS: ENOXAPARIN 40 MG/0.4 ML SYG SC SCH (06:15)
[2017-09-05 06:28] LABS: ABNORMAL IP MESSAGE 1; BASOPHILS % 0.2 % (0.0-2.0); HEMATOCRIT 34.3 % (37.0-47.0); HEMOGLOBIN 11.8 g/dl (12.0-16.0); LYMPHOCYTES # 0.4 10^3/ul (0.8-2.9); LYMPHOCYTES % 4.1 % (15.0-51.0); MEAN CORPUSCULAR HEMOGLOBIN 32.8 pg (29.0-33.0); MEAN CORPUSCULAR HGB CONC 34.4 g/dl (32.0-37.0); MEAN CORPUSCULAR VOLUME 95.3 fl (82.0-101.0); MEAN PLATELET VOLUME 10.7 fl (7.4-10.4); MONOCYTE # 0.1 10^3/ul (0.3-0.9); MONOCYTES % 0.6 % (0.0-11.0); NEUTROPHIL # 10.3 10^3/ul (1.6-7.5); NEUTROPHILS % 94.5 % (39.0-77.0); PLATELET COUNT 293 10^3/UL (140-415); RED CELL DISTRIBUTION WIDTH 13.2 % (11.5-14.5); WHITE BLOOD COUNT 10.9 10^3/ul (4.8-10.8)
[2017-09-05 06:57] LABS: POSITIVE DIFF @See below
[2017-09-05 07:15] LABS: ALBUMIN 3.6 g/dl (3.3-4.9); ALBUMIN/GLOBULIN RATIO 1.12; BILIRUBIN,INDIRECT 0.4 mg/dl (0-1.1); BILIRUBIN,TOTAL 0.4 mg/dl (0.2-1.3); CALCIUM 8.7 mg/dl (8.4-10.2); CHOL/HDL RATIO 2.4 RATIO; CREATININE 0.61 mg/dl (0.44-1.00); MAGNESIUM 1.7 mg/dl (1.7-2.5); POTASSIUM 4.3 mmol/L (3.5-5.1); TOTAL PROTEIN 6.8 g/dl (6.1-8.1)
[2017-09-05 07:29] LABS: THYROID STIMULATING HORMONE 0.264 MIU/L (0.465-4.680)
--- NOTE | 2017-09-05 17:39 | PN ---
Date/Time of Note Date/Time of Note DATE: 09/05/17 TIME: 17:36 Assessment/Plan VTE Prophylaxis VTE Prophylaxis Intervention: SCD's Lines/Catheters IV Catheter Type (from Nrsg): Peripheral IV Assessment/Plan Assessment/Plan 1. acute appendicitis s/p lap appy - Surgery on board and recommendations appreciated. - Pain control - On clears and advance as tolerated - WBC trending down and remains afebrile. no need for further antibiotics 2. Disposition - If tolerating diet and return of bowel function will d/c in am Subjective 24 Hr Interval Summary Free Text/Dictation Patient still experiencing soreness and nausea this am. Tolerating full liquid diet but denies any bowel movements. No acute overnight events. Exam/Review of Systems Vital Signs Vitals Vital Signs Date Time Temp Pulse Resp B/P Pulse Ox O2 Delivery O2 Flow Rate FiO2 09/05/17 13:30 99.2 63 18 106/58 98 Room Air 09/05/17 00:45 2.0 Intake and Output 09/04/17 09/04/17 09/05/17 15:00 23:00 07:00 Intake Total 1225 ml Output Total 10 ml Balance 1215 ml Exam General: patient is in mild distress secondary to pain. appears fatigued but answering questions appropriately Neck: Supple with full range of motion Lungs: Clear to auscultation bilaterally no crackles rales or wheezing Heart: Normal S1-S2, Regular rhythm and rate. No murmur, S3, or S4 Abdomen: Soft, mild tenderness RLQ. Nondistended, hypoactive bowel sounds. Surgical incision with Steri-Strips clean dry and intact no drainage noted Extremities: Normal to inspection, no edema no cyanosis Skin: no new rashes Results Result Diagram: 09/05/17 0533 09/05/17 0533 Results 24 hrs Laboratory Tests Test 09/04/17 20:30 09/05/17 05:33 White Blood Count 12.7 H 10.9 H Red Blood Count 3.86 L 3.60 L Hemoglobin 12.7 11.8 L Hematocrit 36.5 L 34.3 L Mean Corpuscular Volume 94.6 95.3 Mean Corpuscular Hemoglobin 32.9 32.8 Mean Corpuscular Hemoglobin Concent 34.8 34.4 Red Cell Distribution Width 13.0 13.2 Platelet Count 330 293 Mean Platelet Volume 10.6 H 10.7 H Neutrophils % 76.1 94.5 H Lymphocytes % 17.3 4.1 L Monocytes % 5.2 0.6 Eosinophils % 0.5 0.0 Basophils % 0.5 0.2 Nucleated Red Blood Cells % 0.0 0.0 Neutrophils # 9.7 H 10.3 H Lymphocytes # 2.2 0.4 L Monocytes # 0.7 0.1 L Eosinophils # 0.1 0.0 Basophils # 0.1 0.0 Nucleated Red Blood Cells # 0.0 0.0 Urine Color YELLOW Urine Clarity CLEAR Urine pH 6.0 Urine Specific [place] 1.015 Urine Ketones NEGATIVE Urine Nitrite NEGATIVE Urine Bilirubin NEGATIVE Urine Urobilinogen NEGATIVE Urine Leukocyte Esterase NEGATIVE Urine Hemoglobin NEGATIVE Urine Glucose NEGATIVE Urine Total Protein NEGATIVE Sodium Level 139 140 Potassium Level 3.7 4.3 Chloride Level 106 109 Carbon Dioxide Level 23 23 Anion Gap 14 12 Blood Urea Nitrogen 9 8 Creatinine 0.65 0.61 Glucose Level 87 154 Calcium Level 9.2 8.7 Total Bilirubin 0.2 0.4 Direct Bilirubin 0.00 0.00 Indirect Bilirubin 0.2 0.4 Aspartate Amino Transf (AST/SGOT) 20 19 Alanine Aminotransferase (ALT/SGPT) 25 21 Alkaline Phosphatase 83 58 Total Protein 7.0 6.8 Albumin 4.0 3.6 Globulin 3.00 3.20 Albumin/Globulin Ratio 1.33 1.12 Lipase 46 Hemoglobin A1c 5.2 Magnesium Level 1.7 Triglycerides Level 32 Cholesterol Level 149 LDL Cholesterol, Calculated 83 HDL Cholesterol 60 Cholesterol/HDL Ratio 2.4 Thyroid Stimulating Hormone (TSH) 0.264 L Medications Medications Current Medications Ondansetron HCl (Zofran Inj) 4 mg Q6H PRN IV NAUSEA AND/OR VOMITING Last administered on 09/05/17t 01:19; Admin Dose 4 MG; Start 09/04/17 at 22:00 Acetaminophen (Tylenol Tab) 650 mg Q6H PRN PO PAIN LEVEL 1-3 OR FEVER; Start 09/04/17 at 22:00 Morphine Sulfate (morphine) 2 mg Q4H PRN IV SEVERE PAIN LEVEL 7-10; Start at 22:00 Docusate Sodium (Colace) 100 mg Q12H PRN PO CONSTIPATION; Start 09/04/17 at 22 :00 Bisacodyl 5 mg 5 mg DAILY PRN PO CONSTIPATION; Start 09/04/17 at 22:00 Piperacillin Sod/ Tazobactam Sod (Zosyn 3.375gm/ 50 ml (Pmx)) 50 ml @ 100 mls/ hr Q6 IVPB Last administered on 09/05/17 11:58; Admin Dose 100 MLS/HR; Start 09/05/17 at 06:00 Acetaminophen (Tylenol Tab) 650 mg Q6H PRN PO PAIN LEVEL 1-3 OR FEVER; Start 09/04/17 at 23:00 Ibuprofen (Motrin) 600 mg Q6H PRN PO PAIN LEVEL 1-3; Start 09/06/17 at 17:02 Ketorolac Tromethamine (Toradol) 15 mg Q6H IV Last administered on 09/05/17 11:57; Admin Dose 15 MG; Start 09/04/17 at 23:00; Stop 09/06/17 at 17:01 Morphine Sulfate (morphine) 2 mg Q2H PRN IV PAIN LEVEL 8-10; Start 09/04/17 at 23:00 Oxycodone/ Acetaminophen 1 tab 1 tab Q6H PRN PO PAIN LEVEL 4-7 Last administered on 09/05/17 01:18; Admin Dose 1 TAB; Start 09/04/17 at 23:00 Potassium Chloride/Dextrose/ Sod Cl (D5-NS + KCl 20 Meq) 1,000 ml @ 100 mls/hr Q10H IV Last administered on 09/05/17 11:58; Admin Dose 100 MLS/HR; Start at 00:45 Enoxaparin Sodium (Lovenox) 40 mg DAILY@07 SC Last administered on 09/05/17 06:15; Admin Dose 40 MG; Start 09/05/17 at 07:00 DANTE CERVANTES MD Sep 05, 2017 17:39
[2017-09-06 01:29] VITALS: BP 100/65; RESP 14
[2017-09-06] MEDS: OXYCODONE/ACETAMINOPHEN (5/325) TAB PO PRN (02:31)
[2017-09-06] MEDS: KETOROLAC 15 MG INJ IV SCH ×3 (05:19→17:13)
[2017-09-06] MEDS: PIPER-TAZO 3.375 GM IV (PMX) 50 ML IVPB SCH ×3 (05:19→17:13)
[2017-09-06] MEDS: D5-NS + KCL 20 MEQ 1,000 ML IV SCH ×2 (06:18→16:18)
[2017-09-06] MEDS: ENOXAPARIN 40 MG/0.4 ML SYG SC SCH (06:18)
[2017-09-06 07:46] VITALS: BP 103/62; RESP 18
--- NOTE | 2017-09-06 13:06 | PN ---
Date/Time of Note Date/Time of Note DATE: 09/06/17 TIME: 13:04 Assessment/Plan VTE Prophylaxis VTE Prophylaxis Intervention: SCD's Lines/Catheters IV Catheter Type (from Nrsg): Peripheral IV Assessment/Plan Assessment/Plan 1. acute appendicitis s/p lap appy - Surgery on board and recommendations appreciated. - Pain control - On liquids and advance as tolerated - remains afebrile 2. Disposition - After tolerates diet, will d/c later today Subjective 24 Hr Interval Summary Free Text/Dictation Patient still has not eaten but does admit to passing gas. Sleeping at time of interview and state still sore. No acute overnight events. Exam/Review of Systems Vital Signs Vitals Vital Signs Date Time Temp Pulse Resp B/P Pulse Ox O2 Delivery O2 Flow Rate FiO2 09/06/17 07:46 98.6 78 18 103/62 100 09/05/17 13:30 Room Air 09/05/17 00:45 2.0 Intake and Output 09/05/17 09/05/17 09/06/17 14:59 22:59 06:59 Intake Total 50 ml 50 ml 1515 ml Balance 50 ml 50 ml 1515 ml Exam General: patient resting comfortably. in no acute distres Neck: Supple with full range of motion Lungs: Clear to auscultation bilaterally no crackles rales or wheezing Heart: Normal S1-S2, Regular rhythm and rate. No murmur, S3, or S4 Abdomen: Soft, mild tenderness RLQ. Nondistended, hypoactive bowel sounds. Surgical incision with Steri-Strips clean dry and intact no drainage noted Extremities: Normal to inspection, no edema no cyanosis Skin: no new rashes Results Result Diagram: 09/05/17 0533 09/05/17 0533 Medications Medications Current Medications Ondansetron HCl (Zofran Inj) 4 mg Q6H PRN IV NAUSEA AND/OR VOMITING Last administered on 09/05/17t 01:19; Admin Dose 4 MG; Start 09/04/17 at 22:00 Acetaminophen (Tylenol Tab) 650 mg Q6H PRN PO PAIN LEVEL 1-3 OR FEVER; Start 09/04/17 at 22:00 Morphine Sulfate (morphine) 2 mg Q4H PRN IV SEVERE PAIN LEVEL 7-10; Start at 22:00 Docusate Sodium (Colace) 100 mg Q12H PRN PO CONSTIPATION; Start 09/04/17 at 22 :00 Bisacodyl 5 mg 5 mg DAILY PRN PO CONSTIPATION; Start 09/04/17 at 22:00 Piperacillin Sod/ Tazobactam Sod (Zosyn 3.375gm/ 50 ml (Pmx)) 50 ml @ 100 mls/ hr Q6 IVPB Last administered on 09/06/17 11:27; Admin Dose 100 MLS/HR; Start 09/05/17 at 06:00 Acetaminophen (Tylenol Tab) 650 mg Q6H PRN PO PAIN LEVEL 1-3 OR FEVER; Start 09/04/17 at 23:00 Ibuprofen (Motrin) 600 mg Q6H PRN PO PAIN LEVEL 1-3; Start 09/06/17 at 17:02 Ketorolac Tromethamine (Toradol) 15 mg Q6H IV Last administered on 09/06/17 11:27; Admin Dose 15 MG; Start 09/04/17 at 23:00; Stop 09/06/17 at 17:01 Morphine Sulfate (morphine) 2 mg Q2H PRN IV PAIN LEVEL 8-10; Start 09/04/17 at 23:00 Oxycodone/ Acetaminophen 1 tab 1 tab Q6H PRN PO PAIN LEVEL 4-7 Last administered on 09/06/17 02:31; Admin Dose 1 TAB; Start 09/04/17 at 23:00 Potassium Chloride/Dextrose/ Sod Cl (D5-NS + KCl 20 Meq) 1,000 ml @ 100 mls/hr Q10H IV Last administered on 09/05/17 23:22; Admin Dose 100 MLS/HR; Start at 00:45 Enoxaparin Sodium (Lovenox) 40 mg DAILY@07 SC Last administered on 09/06/17 06:18; Admin Dose 40 MG; Start 09/05/17 at 07:00 DANTE CERVANTES MD Sep 06, 2017 13:06
[2017-09-06 14:04] VITALS: BP 99/58; RESP 18
[2017-09-06] MEDS ORDERED: IBUPROFEN 600 MG TAB PO PRN (17:02)
[2017-09-06] MEDS ORDERED: KETO10TA PO (17:15)
--- NOTE | 2017-09-06 17:19 | PDOCDIS ---
Discharge Instructions DIAGNOSIS Discharge Diagnosis 1. Acute appendicitis s/p lap appendectomy CONDITION Patient Condition: Stable HOME CARE INSTRUCTIONS: Diet Instructions: Regular ACTIVITY: Activity Restrictions: Avoid heavy lifting (no lifting more than 25 pounds for at least 8 weeks) Activity Restrictions Comment: no hot tubs, swimming, or baths for 2 weeks FOLLOW UP/APPOINTMENTS Follow-up Plan 1. Take Toradol as needed for pain but do not exceed 40mg in 24 hours 2. Keep well hydrated 3. Avoid heavy lifting of greater than 25 lbs for the next 8 weeks while healing 4. Avoid swimming, baths, or hot tubs for 2 weeks 5. If any issues call your primary care physician or return to the ED. DANTE CERVANTES MD Sep 06, 2017 17:19
--- NOTE | 2017-09-06 17:29 | DS ---
Date/Time of Note Date/Time of Note DATE: 09/06/17 TIME: 17:21 Discharge Summary Admission/Discharge Info Admit Date/Time Sep 04, 2017 at 21:52 Discharge Date/Time Discharge Diagnosis 1. Acute appendicitis s/p lap appendectomy Patient Condition: Stable Consults Surgery, Dr. Pelayo Procedures Laparoscopic appendectomy Hx of Present Illness The patient is a 27-year-old female had some abdominal pain approximately 2 days ago. Her pain initially started around epigastric area and it was a sharp pain that would come and go. Yesterday however the pain localized down to the right lower quadrant and remained constant. She had some nausea but no emesis. She denies fevers, chills or night sweats. CT of the abdomen pelvis showed evidence of acute appendicitis. She was taken to the operating room for laparoscopic appendectomy by Dr. Pelayo. She is still some mild pain status post surgery. She however does feel a lot better than when she felt before she states. Allergies: NKDA Medications: None Exam General: Patient is status post laparoscopic appendectomy. She is currently in some mild postop pain. HEENT: Atraumatic, normocephalic. The pupils are equal, round and reactive. Extraocular motor are intact Neck: Supple with full range of motion. No rigidity or meningismus Chest: Nontender Lungs: Clear to auscultation bilaterally no crackles rales or wheezing Heart: Normal S1-S2, Regular rhythm and rate. No murmur, S3, or S4 Abdomen: Soft, mild tenderness palpation at the surgical sites, nondistended, hypoactive bowel sounds. Surgical scars with Steri-Strips clean dry and intact no drainage noted Extremities: Normal to inspection, no edema no cyanosis Neurologic: Normal mental status, speech normal, cranial nerves II through XII are intact, motor and sensory are intact, no focal weakness Hospital Course Patient underwent lap mare and had no issues during surgery. Patient was experiencing pain yesterday and was not tolerating PO diet. Today patient had a BM and was able to tolerating regular diet. Denied any fevers, chills, nausea , vomiting, or worsening abdominal pain. Patient was discharge home with postop care instructions in stable condition. Home Meds Active Scripts Ketorolac Tromethamine* (Ketorolac Tromethamine*) 10 Mg Tablet, 10 MG PO TID for 7 Days, #21 TAB Prov:DANTE CERVANTES MD 09/06/17 Ibuprofen* (Motrin*) 600 Mg Tab, 600 MG PO Q6, #20 TAB Prov:ANTONIO LANGE NP 03/07/17 Discontinued Scripts Cyclobenzaprine Hcl* (Cyclobenzaprine Hcl*) 10 Mg Tablet, 10 MG PO TID, #15 TAB Prov:ANTONIO LANGE NP 03/07/17 Phenazopyridine Hcl* (Pyridium*) 100 Mg Tab, 100 MG PO TID Y for PAIN, #8 TAB Prov:AMAURI GUTHRIE NP 08/24/15 Ciprofloxacin Hcl* (Ciprofloxacin Hcl*) 500 Mg Tablet, 250 MG PO BID for 10 Days , TAB Prov:AMAURI GUTHRIE NP 08/24/15 Follow-up Plan 1. Take Toradol as needed for pain but do not exceed 40mg in 24 hours 2. Keep well hydrated 3. Avoid heavy lifting of greater than 25 lbs for the next 8 weeks while healing 4. Avoid swimming, baths, or hot tubs for 2 weeks 5. If any issues call your primary care physician or return to the ED. Primary Care Provider Care Physician No Primary Time spent on discharge: > 30 minutes DANTE CERVANTES MD Sep 06, 2017 17:29
== END 2017-09-06 18:15 | disposition home or self-care (01) ==
LOC: FTE 18:27 → INTOOBSV 21:52 → MS2 21:52
PROVIDERS: ADMIT Family Medicine; ATTEND Family Medicine
DX: K35.80 Unspecified acute appendicitis (principal)
CPT/HCPCS: 44970; 74176; 80053; 80061; 81003; 83036; 83690; 83735; 84443; 85025; 88304; 99217; G0378; J1100; J1170; J1650; J1885; J2250; J2270; J2405; J2543; J3010; J3480; J7030; J0171; J0690; J2710